=== PATIENT | female | born 1980 | race Caucasian/White ===

== ENCOUNTER 2017-07-11 05:40 | Day surgery (SDC) | payer OTHER ==
[~2017-07-11] VITALS: Ht 162.6 cm; Wt 94.0 kg
[2017-07-11] MEDS ORDERED: LACTATED RINGERS 1,000 ML IV SCH (06:27)
[2017-07-11] MEDS ORDERED: MIDAZOLAM 1 MG/ML, 2ML ONE (06:28)
[2017-07-11] MEDS ORDERED: PNV1TABL11 PO (06:28)
[2017-07-11] MEDS ORDERED: FENTANYL PF 100 MCG/2ML ONE ×3 (06:28→08:07)
[2017-07-11] MEDS ORDERED: PROPOFOL 10 MG/ML, 20ML ONE (06:29)
[2017-07-11] MEDS ORDERED: DOXYCYCLINE 100MG TABLET PO ONE ×2 (06:30→08:00)
[2017-07-11 06:33] VITALS: BP 119/82
[2017-07-11 06:35] LABS: PATH.CAST-FLAG NOT PRESENT; SPERM-FLAG NOT PRESENT; SRC-FLAG NOT PRESENT; XTAL-FLAG NOT PRESENT; YLC-FLAG NOT PRESENT
[2017-07-11] MEDS ORDERED: OXYTOCIN 10 UNITS/ML, 1ML ONE (06:36)
[2017-07-11] MEDS ORDERED: MISOPROSTOL 200 MCG TABLET ONE (06:36)
[2017-07-11] MEDS ORDERED: SILVER NITRATE STICK TP ONE (06:37)
[2017-07-11] MEDS ORDERED: METHYLERGONOVINE 0.2 MG/ML IM ONE (06:37)
[2017-07-11] MEDS ORDERED: KETOROLAC 30 MG/1 ML ONE (06:40)
[2017-07-11] MEDS ORDERED: ONDANSETRON 2MG/ML, 2ML ONE ×3 (06:40→07:42)
[2017-07-11] MEDS ORDERED: DEXAMETHASONE 4 MG/ML, 1ML ONE ×2 (06:40)
[2017-07-11 06:57] LABS: HEMATOCRIT 41.3 % (34.6-47.8); HEMOGLOBIN 13.8 g/dL (11.7-16.4); WHITE BLOOD COUNT 12.3 x10^3/uL (3.4-10)
[2017-07-11] MEDS ORDERED: PROMETHAZINE 25 MG/ML, 1ML IV PRN (07:00)
[2017-07-11] MEDS ORDERED: OXYcodone 5 MG/5 ML ORAL.SOL UDC PO PRN (07:00)
[2017-07-11] MEDS ORDERED: ACETAMINOPHEN 325 MG TABLET PO PRN (07:00)
[2017-07-11] MEDS ORDERED: ONDANSETRON 2MG/ML, 2ML IVPush PRN (07:00)
[2017-07-11] MEDS ORDERED: MEPERIDINE/PF 25MG/0.5ML IVPush PRN (07:00)
[2017-07-11] MEDS ORDERED: HYDROmorphone 1 MG/ML, 1ML IV PRN (07:00)
[2017-07-11] MEDS: FENTANYL PF 100 MCG/2ML IV PRN ×2 (08:08→08:17)
[2017-07-11] MEDS ORDERED: ACETAMINOPHEN 650 MG/20.3 ML UDC ONE (08:18)
[2017-07-11] MEDS ORDERED: OXYcodone 5 MG/5 ML ORAL.SOL UDC ONE (08:18)
== END 2017-07-11 10:50 ==
LOC: OUT 05:40
PROVIDERS: ATTEND Student in an Organized Health Care Education/Training Program
DX: O02.1 Missed abortion (principal); Z3A.08 8 weeks gestation of pregnancy
CPT/HCPCS: 36415; 59820; 81001; 85025; 86900; 87086; 88305; J1100; J1885; J2250; J2405; J2590; J2704; J3010; J7120; J2210

== ENCOUNTER 2018-07-17 11:20 | Outpatient (CLI) | payer SELFPAY ==
[~2018-07-17] VITALS: Ht 162.6 cm; Wt 97.7 kg
[~2018-07-17 11:20] MED LIST: PNV1TABL11 PO
[2018-07-17 11:42] VITALS: BP 110/57
== END 2018-07-17 13:23 | disposition home or self-care (01) ==
LOC: LDOP 11:20
PROVIDERS: ATTEND Student in an Organized Health Care Education/Training Program
DX: O26.892 Other specified pregnancy related conditions, second trimester (principal); Z3A.23 23 weeks gestation of pregnancy; V89.2XXA Person injured in unspecified motor-vehicle accident, traffic, initial encounter
CPT/HCPCS: 59025; 99211; G0463

== ENCOUNTER 2018-10-05 11:45 | Outpatient (CLI) | payer OTHER ==
[~2018-10-05] VITALS: Ht 162.6 cm; Wt 97.7 kg
[2018-10-05 12:02] VITALS: BP 115/72
[2018-10-05 12:37] LABS: MICROSCOPIC INDICATED
[2018-10-05] MEDS ORDERED: TERBUTALINE 1 MG/ML, 1ML SQ ONE (14:00)
[2018-10-05] MEDS ORDERED: TERBUTALINE 1 MG/ML, 1ML ONE (14:00)
== END 2018-10-05 15:05 | disposition home or self-care (01) ==
LOC: LDOP 11:45
PROVIDERS: ATTEND Student in an Organized Health Care Education/Training Program
DX: O62.9 Abnormality of forces of labor, unspecified (principal); Z3A.35 35 weeks gestation of pregnancy
CPT/HCPCS: 59025; 81001; 87086; 89060; 96372; 99211; J3105; G0463; Q0114

== ENCOUNTER 2018-10-13 00:03 | Observation (INO) | payer OTHER ==
[~2018-10-13] VITALS: Ht 162.6 cm; Wt 97.7 kg
[2018-10-13 00:57] LABS: RAPID INFLUENZA A Negative (Negative); RAPID INFLUENZA B Negative (Negative)
[2018-10-13] MEDS ORDERED: ACETAMINOPHEN 325 MG TABLET ONE (00:58)
[2018-10-13] MEDS ORDERED: ACETAMINOPHEN 325 MG TABLET PO PRN (01:00)
[2018-10-13 02:20] LABS: BASOPHILS # (AUTO) 0.04 x10^3/uL (0-0.1); BASOPHILS % (AUTO) 0 % (0-1); EOSINOPHILS % (AUTO) 0 % (1-7); LYMPHOCYTES # (AUTO) 1.06 x10^3/uL (1-3.4); LYMPHOCYTES % (AUTO) 10 % (22-44); MD NO; MEAN CORPUSCULAR HEMOGLOBIN 31.5 pg (27.0-34.8); MEAN CORPUSCULAR HGB CONC 34.2 g/dL (32.4-35.8); MEAN CORPUSCULAR VOLUME 92.3 fL (80-100); MEAN PLATELET VOLUME 9.6 fL (7.4-10.4); MONOCYTES # (AUTO) 0.77 x10^3/uL (0.2-0.8); MONOCYTES % (AUTO) 7 % (2-9); NEUTROPHILS # (AUTO) 8.74 x10^3/uL (1.8-6.8); NEUTROPHILS % (AUTO) 82 % (42-75); PLATELET COUNT 211 x10^3/uL (130-400); RED BLOOD COUNT 3.43 x10^6/uL (3.82-5.3); RED CELL DISTRIBUTION WIDTH 14.5 % (9.6-15.2)
[2018-10-13 02:22] LABS: MICROSCOPIC NOT IND
[2018-10-13 02:26] LABS: CULTURE INDICATED? NO
[2018-10-13 02:33] LABS: ALANINE AMINOTRANSFERASE 12 U/L (12-78); ALBUMIN 2.1 g/dL (3.4-5.0); ANION GAP 8 mmol/L (5-15); CALCIUM 7.8 mg/dL (8.5-10.1); CHLORIDE 107 mmol/L (98-107); CREATININE 0.48 mg/dL (0.55-1.02)
[2018-10-13 02:34] LABS: INTERNATIONAL NORMALIZED RATIO 0.96 (0.93-1.1); PROTHROMBIN TIME 10.1 Seconds (9.6-11.5)
[2018-10-13 02:35] LABS: ALKALINE PHOSPHATASE 137 U/L (45-117); BILIRUBIN,TOTAL 0.5 mg/dL (0.2-1.0); TOTAL PROTEIN 5.9 g/dL (6.4-8.2)
[2018-10-13] MEDS ORDERED: LACTATED RINGERS 1,000 ML IVBOLUS ONE (05:00)
[2018-10-13] MEDS ORDERED: LACTATED RINGERS 1,000 ML IV SCH (05:00)
== END 2018-10-13 04:50 | disposition home or self-care (01) ==
LOC: LDOP 00:03 → LDIP 02:00
PROVIDERS: ADMIT Student in an Organized Health Care Education/Training Program; ATTEND Student in an Organized Health Care Education/Training Program
DX: O26.893 Other specified pregnancy related conditions, third trimester (principal); J02.9 Acute pharyngitis, unspecified; R52 Pain, unspecified; Z3A.36 36 weeks gestation of pregnancy
CPT/HCPCS: 36415; 59025; 80053; 81003; 83605; 85025; 85610; 85730; 87081; 87400; 87880; G0378; J7120; 96360; 96361

== ENCOUNTER 2018-10-16 21:52 | Inpatient (IN) | payer OTHER ==
[~2018-10-16] VITALS: Ht 162.6 cm; Wt 98.8 kg
[2018-10-16] MEDS ORDERED: ACETAMINOPHEN 325 MG TABLET PO ONE (23:00)
[2018-10-16] MEDS ORDERED: SODIUM CHLORIDE 0.9% 1,000 ML IV SCH ×2 (23:00→23:32)
[2018-10-16] MEDS ORDERED: PLEASE ENTER HEIGHT AND WEIGHT MC SCH (23:30)
[2018-10-16] MEDS ORDERED: PLEASE ENTER HEIGHT MC SCH (23:43)
[2018-10-17] MEDS ORDERED: ONDANSETRON ODT 4 MG PO PRN
[2018-10-17] MEDS ORDERED: CEFTRIAXONE PMX 2GM/50ML 50 ML IV SCH
[2018-10-17 00:18] LABS: BASOPHILS # (AUTO) 0.03 x10^3/uL (0-0.1); BASOPHILS % (AUTO) 0 % (0-1); EOSINOPHILS # (AUTO) 0.06 x10^3/uL (0-0.4); EOSINOPHILS % (AUTO) 1 % (1-7); LYMPHOCYTES # (AUTO) 1.19 x10^3/uL (1-3.4); LYMPHOCYTES % (AUTO) 13 % (22-44); MD NO; MEAN CORPUSCULAR HEMOGLOBIN 31.7 pg (27.0-34.8); MEAN CORPUSCULAR HGB CONC 34.3 g/dL (32.4-35.8); MEAN CORPUSCULAR VOLUME 92.4 fL (80-100); MEAN PLATELET VOLUME 8.7 fL (7.4-10.4); MONOCYTES # (AUTO) 0.75 x10^3/uL (0.2-0.8); MONOCYTES % (AUTO) 8 % (2-9); NEUTROPHILS # (AUTO) 7.48 x10^3/uL (1.8-6.8); NEUTROPHILS % (AUTO) 79 % (42-75); PLATELET COUNT 237 x10^3/uL (130-400); RED BLOOD COUNT 3.33 x10^6/uL (3.82-5.3); RED CELL DISTRIBUTION WIDTH 14.7 % (9.6-15.2)
[2018-10-17 00:30] LABS: ANION GAP 7 mmol/L (5-15); CALCIUM 7.6 mg/dL (8.5-10.1); CHLORIDE 110 mmol/L (98-107); CREATININE 0.46 mg/dL (0.55-1.02)
[2018-10-17] MEDS ORDERED: ALBUTEROL SULFATE 2.5 MG/3 ML ONE (00:53)
[2018-10-17] MEDS ORDERED: ALBUTEROL SULFATE 2.5 MG/3 ML NPPB PRN (01:00)
[2018-10-17 02:00] VITALS: BP 116/62
[2018-10-17 05:24] LABS: BASOPHILS # (AUTO) 0.03 x10^3/uL (0-0.1); BASOPHILS % (AUTO) 0 % (0-1); EOSINOPHILS # (AUTO) 0.03 x10^3/uL (0-0.4); EOSINOPHILS % (AUTO) 0 % (1-7); LYMPHOCYTES # (AUTO) 1.45 x10^3/uL (1-3.4); LYMPHOCYTES % (AUTO) 17 % (22-44); MD NO; MEAN CORPUSCULAR HEMOGLOBIN 31.3 pg (27.0-34.8); MEAN CORPUSCULAR HGB CONC 33.7 g/dL (32.4-35.8); MEAN PLATELET VOLUME 8.9 fL (7.4-10.4); MONOCYTES # (AUTO) 0.67 x10^3/uL (0.2-0.8); MONOCYTES % (AUTO) 8 % (2-9); NEUTROPHILS # (AUTO) 6.34 x10^3/uL (1.8-6.8); NEUTROPHILS % (AUTO) 74 % (42-75); PLATELET COUNT 247 x10^3/uL (130-400); RED BLOOD COUNT 3.26 x10^6/uL (3.82-5.3); RED CELL DISTRIBUTION WIDTH 15.1 % (9.6-15.2)
[2018-10-17 05:35] LABS: CALCIUM 7.5 mg/dL (8.5-10.1); CHLORIDE 113 mmol/L (98-107)
[2018-10-17 05:38] LABS: ANION GAP 8 mmol/L (5-15); CREATININE 0.35 mg/dL (0.55-1.02)
[2018-10-17 06:34] VITALS: BP 94/61
[2018-10-17] MEDS ORDERED: AZITHROMYCIN 500 MG TABLET PO SCH (09:00)
[2018-10-17] MEDS: PRENATAL VIT/IRON/FA 1 EACH TABLET PO SCH (12:00)
[2018-10-17] MEDS: GUAIFENESIN 200 MG TABLET PO SCH ×3 (12:17→22:21)
[2018-10-17] MEDS: LACTATED RINGERS 1,000 ML IV SCH ×2 (12:40→22:22)
[2018-10-17] MEDS ORDERED: ACETAMINOPHEN 325 MG TABLET ONE ×2 (15:36→22:09)
[2018-10-17] MEDS: ACETAMINOPHEN 325 MG TABLET PO PRN ×2 (15:39→22:20)
[2018-10-17] MEDS ORDERED: AZITHROMYCIN 500 MG TABLET ONE (22:11)
[2018-10-17 22:14] VITALS: BP 120/70
[2018-10-17] MEDS: AZITHROMYCIN 500 MG TABLET PO SCH (22:21)
[2018-10-17] MEDS: CEFTRIAXONE PMX 2GM/50ML 50 ML IV SCH (22:22)
[2018-10-18] MEDS ORDERED: CALCIUM CARBONATE 500 MG TAB.CHEW ONE (00:39)
[2018-10-18] MEDS ORDERED: CALCIUM CARBONATE 500 MG TAB.CHEW PO PRN (01:00)
[2018-10-18] MEDS ORDERED: ACETAMINOPHEN 325 MG TABLET ONE ×3 (05:45→19:21)
[2018-10-18] MEDS: ACETAMINOPHEN 325 MG TABLET PO PRN ×3 (05:47→19:25)
[2018-10-18] MEDS: GUAIFENESIN 200 MG TABLET PO SCH ×2 (05:47→10:51)
[2018-10-18 05:54] VITALS: BP 112/64
[2018-10-18 07:51] VITALS: BP 122/72
[2018-10-18 08:33] LABS: ALBUMIN 1.8 g/dL (3.4-5.0); ANION GAP 7 mmol/L (5-15); CHLORIDE 111 mmol/L (98-107)
[2018-10-18 08:34] LABS: CREATININE 0.34 mg/dL (0.55-1.02)
[2018-10-18] MEDS ORDERED: PRENATAL VIT/IRON/FA 1 EACH TABLET ONE (08:55)
[2018-10-18] MEDS: PRENATAL VIT/IRON/FA 1 EACH TABLET PO SCH (09:03)
[2018-10-18] MEDS: SODIUM CHLORIDE FLUSH 3ML SYRINGE IVF SCH (10:57)
[2018-10-18] MEDS ORDERED: POTASSIUM CHLORIDE 20 MEQ TAB.ER.PRT PO ONE (11:00)
[2018-10-18] MEDS ORDERED: GUAIFENESIN 200 MG TABLET PO PRN (11:30)
[2018-10-18] MEDS ORDERED: AZITHROMYCIN 500 MG TABLET ONE (20:58)
[2018-10-18] MEDS: AZITHROMYCIN 500 MG TABLET PO SCH (21:01)
[2018-10-18] MEDS: CEFTRIAXONE PMX 2GM/50ML 50 ML IV SCH (21:01)
[2018-10-19] MEDS ORDERED: ACETAMINOPHEN 325 MG TABLET ONE ×2 (00:45→09:48)
[2018-10-19] MEDS: ACETAMINOPHEN 325 MG TABLET PO PRN ×2 (00:47→09:51)
[2018-10-19 07:36] LABS: ALBUMIN 1.8 g/dL (3.4-5.0); ANION GAP 7 mmol/L (5-15); CALCIUM 8.3 mg/dL (8.5-10.1); CHLORIDE 113 mmol/L (98-107)
[2018-10-19 07:37] LABS: CREATININE 0.37 mg/dL (0.55-1.02)
[2018-10-19] MEDS ORDERED: PRENATAL VIT/IRON/FA 1 EACH TABLET ONE (09:49)
[2018-10-19] MEDS: SODIUM CHLORIDE FLUSH 3ML SYRINGE IVF SCH (09:51)
[2018-10-19] MEDS: PRENATAL VIT/IRON/FA 1 EACH TABLET PO SCH (09:51)
[2018-10-19] MEDS ORDERED: AZIT500T5 PO (10:31)
[2018-10-19] MEDS ORDERED: CEFD300C37 PO (10:31)
[2018-10-19] MEDS ORDERED: GUAI200T3 PO (10:31)
== END 2018-10-19 13:11 | disposition home or self-care (01) | DRG 831 ==
LOC: 3NE 22:22 → LDIP 10-17 09:43
PROVIDERS: ADMIT Family Medicine; ATTEND Family Medicine
DX: O99.513 Diseases of the respiratory system complicating pregnancy, third trimester (principal); J18.9 Pneumonia, unspecified organism; O21.2 Late vomiting of pregnancy; O99.283 Endocrine, nutritional and metabolic diseases complicating pregnancy, third trimester; E86.0 Dehydration; Z3A.36 36 weeks gestation of pregnancy
CPT/HCPCS: 36415; J7613; 80048; 82040; 85025; 87040; 94640; G0378; J0696; J7030; J7120

== ENCOUNTER 2018-10-28 20:37 | Inpatient (IN) | payer OTHER ==
[~2018-10-28] VITALS: Ht 162.6 cm; Wt 93.0 kg
[~2018-10-28 20:37] MED LIST changes: +AZIT500T5 PO; +CEFD300C37 PO; +GUAI200T3 PO
[2018-10-28] MEDS ORDERED: LACTATED RINGERS 1,000 ML IV SCH ×2 (20:46→21:12)
[2018-10-28] MEDS ORDERED: D5%-LACTATED RINGERS 1,000 ML IV SCH (20:46)
[2018-10-28] MEDS ORDERED: OXYTOCIN 30U/ 0.9% NaCL 500ML 500 ML IV ONE (20:46)
[2018-10-28] MEDS ORDERED: LIDOCAINE 1%, 20ML ONE (20:54)
[2018-10-28] MEDS ORDERED: OXYTOCIN 30U/ 0.9% NaCL 500ML 500 ML ONE (20:54)
[2018-10-28] MEDS ORDERED: MISOPROSTOL 200 MCG TABLET ONE (20:54)
[2018-10-28] MEDS ORDERED: NEWBORN KIT ONE (20:54)
[2018-10-28] MEDS ORDERED: TERBUTALINE 1 MG/ML, 1ML ONE (20:55)
[2018-10-28] MEDS ORDERED: ONDANSETRON 2MG/ML, 2ML IVPush PRN (21:00)
[2018-10-28] MEDS ORDERED: FENTANYL PF 100 MCG/2ML IV PRN (21:00)
[2018-10-28] MEDS ORDERED: CALCIUM CARBONATE 500 MG TAB.CHEW PO PRN (21:00)
[2018-10-28] MEDS ORDERED: FENTANYL PF 100 MCG/2ML IVPush PRN (21:00)
[2018-10-28] MEDS ORDERED: TERBUTALINE 1 MG/ML, 1ML IVPush PRN (21:00)
[2018-10-28 21:06] LABS: BASOPHILS % (AUTO) 1 % (0-1); EOSINOPHILS # (AUTO) 0.14 x10^3/uL (0-0.4); EOSINOPHILS % (AUTO) 1 % (1-7); LYMPHOCYTES # (AUTO) 2.56 x10^3/uL (1-3.4); LYMPHOCYTES % (AUTO) 20 % (22-44); MD NO; MEAN CORPUSCULAR HEMOGLOBIN 31.3 pg (27.0-34.8); MEAN CORPUSCULAR VOLUME 92.1 fL (80-100); MONOCYTES # (AUTO) 0.88 x10^3/uL (0.2-0.8); MONOCYTES % (AUTO) 7 % (2-9); NEUTROPHILS # (AUTO) 8.91 x10^3/uL (1.8-6.8); NEUTROPHILS % (AUTO) 71 % (42-75); PLATELET COUNT 374 x10^3/uL (130-400); RED BLOOD COUNT 4.13 x10^6/uL (3.82-5.3); RED CELL DISTRIBUTION WIDTH 14.9 % (9.6-15.2)
[2018-10-28] MEDS ORDERED: FENTANYL/BUPIV./NS/PF 250 ML EPIDCONT SCH (21:12)
[2018-10-28] MEDS ORDERED: FENTANYL PF 500 MCG, BUPIVACAINE/PF 0.5%, 30ML 62.5 ML in SODIUM CHLORIDE 0.9% 177.5 ML EPIDCONT SCH (21:30)
[2018-10-28] MEDS ORDERED: LACTATED RINGERS 1,000 ML IVBOLUS PRN (21:30)
[2018-10-28] MEDS ORDERED: OXYTOCIN 30U/ 0.9% NaCL 500ML 500 ML IV PRN (21:42)
[2018-10-28] MEDS ORDERED: BUPIVACAINE 0.25% ONE (22:13)
[2018-10-28] MEDS ORDERED: FENTANYL PF 100 MCG/2ML ONE (22:13)
[2018-10-29] MEDS ORDERED: CALCIUM CARBONATE 500 MG TAB.CHEW ONE ×2 (00:19→02:09)
[2018-10-29] MEDS ORDERED: GUAIFENESIN/DM 200-20MG, 10ML UDC PO PRN (00:30)
[2018-10-29] MEDS ORDERED: NEWBORN KIT ONE (03:41)
[2018-10-29] MEDS ORDERED: IBUPROFEN 600 MG TABLET ONE (04:13)
[2018-10-29] MEDS ORDERED: OXYTOCIN 30U/ 0.9% NaCL 500ML 500 ML ONE (04:13)
[2018-10-29] MEDS: OXYTOCIN 30U/ 0.9% NaCL 500ML 500 ML IV SCH ×2 (04:16→12:44)
[2018-10-29] MEDS ORDERED: IBUPROFEN 800 MG TABLET ONE (04:24)
[2018-10-29] MEDS: IBUPROFEN 800 MG TABLET PO PRN ×3 (04:25→21:00)
[2018-10-29] MEDS: GUAIFENESIN/COD200MG-20MG/10ML LIQUID PO PRN ×3 (04:26→20:53)
[2018-10-29] MEDS ORDERED: CARBOPROST TROMETHAMINE 250 MCG/ML, 1ML IM PRN (04:30)
[2018-10-29] MEDS ORDERED: MISOPROSTOL 200 MCG TABLET PR PRN (04:30)
[2018-10-29] MEDS ORDERED: OXYcodone/APAP 5/325MG TABLET PO PRN (04:30)
[2018-10-29] MEDS ORDERED: RHOGAM FROM BLOOD BANK 1 NOTE EA IM/IV ONE (04:30)
[2018-10-29] MEDS ORDERED: METHYLERGONOVINE 0.2 MG/ML IM PRN (04:30)
[2018-10-29] MEDS ORDERED: OXYcodone/APAP 5/325MG TABLET ONE (04:51)
[2018-10-29] MEDS: OXYcodone/APAP 5/325MG TABLET PO PRN (05:01)
[2018-10-29 05:45] VITALS: BP 121/80
[2018-10-29 08:05] VITALS: BP 115/76
[2018-10-29] MEDS: PRENATAL VIT/IRON/FA 1 EACH TABLET PO SCH (08:19)
[2018-10-29] MEDS: DOCUSATE 100 MG CAPSULE PO PRN ×2 (08:19→20:52)
[2018-10-29 12:15] VITALS: BP 111/62
[2018-10-29 12:30] LABS: BASOPHILS # (AUTO) 0.07 x10^3/uL (0-0.1); BASOPHILS % (AUTO) 0 % (0-1); EOSINOPHILS # (AUTO) 0.08 x10^3/uL (0-0.4); EOSINOPHILS % (AUTO) 1 % (1-7); LYMPHOCYTES # (AUTO) 2.46 x10^3/uL (1-3.4); LYMPHOCYTES % (AUTO) 15 % (22-44); MD SCAN; MEAN CORPUSCULAR HEMOGLOBIN 30.6 pg (27.0-34.8); MEAN CORPUSCULAR HGB CONC 33.1 g/dL (32.4-35.8); MEAN CORPUSCULAR VOLUME 92.5 fL (80-100); MEAN PLATELET VOLUME 9.4 fL (7.4-10.4); MONOCYTES # (AUTO) 1.05 x10^3/uL (0.2-0.8); MONOCYTES % (AUTO) 6 % (2-9); NEUTROPHILS # (AUTO) 12.91 x10^3/uL (1.8-6.8); NEUTROPHILS % (AUTO) 78 % (42-75); PLATELET COUNT 315 x10^3/uL (130-400); RED BLOOD COUNT 3.82 x10^6/uL (3.82-5.3); RED CELL DISTRIBUTION WIDTH 14.5 % (9.6-15.2)
[2018-10-29 17:28] VITALS: BP 118/83
[2018-10-29 19:50] VITALS: BP 119/76
[2018-10-30 01:00] VITALS: BP 116/75
[2018-10-30] MEDS: IBUPROFEN 800 MG TABLET PO PRN (05:22)
[2018-10-30] MEDS: GUAIFENESIN/COD200MG-20MG/10ML LIQUID PO PRN (05:22)
[2018-10-30] MEDS: OXYTOCIN 30U/ 0.9% NaCL 500ML 500 ML IV SCH ×2 (07:30→10:01)
[2018-10-30 07:45] VITALS: BP 117/76
[2018-10-30] MEDS: DOCUSATE 100 MG CAPSULE PO PRN (08:54)
[2018-10-30] MEDS: PRENATAL VIT/IRON/FA 1 EACH TABLET PO SCH (08:54)
[2018-10-30] MEDS: OXYcodone/APAP 5/325MG TABLET PO PRN (08:54)
[2018-10-30] MEDS ORDERED: IBUP-1223 PO (12:44)
== END 2018-10-30 13:47 | disposition home or self-care (01) | DRG 807 ==
LOC: LDOP 20:37 → LDIP 20:49 → 2NW 10-29 05:27
PROVIDERS: ADMIT Student in an Organized Health Care Education/Training Program; ATTEND Student in an Organized Health Care Education/Training Program
PROC: 10E0XZZ Delivery of Products of Conception, External Approach (ICD-10-PCS; principal; 2018-10-29)
PROC: 0HQ9XZZ Repair Perineum Skin, External Approach (ICD-10-PCS; 2018-10-29)
PROC: 3E0R3BZ Introduction of Anesthetic Agent into Spinal Canal, Percutaneous Approach (ICD-10-PCS; 2018-10-29)
PROC: 00HU33Z Insertion of Infusion Device into Spinal Canal, Percutaneous Approach (ICD-10-PCS; 2018-10-29)
DX: O69.81X0 Labor and delivery complicated by cord around neck, without compression, not applicable or unspecified (principal); Z37.0 Single live birth; O70.0 First degree perineal laceration during delivery; Z3A.38 38 weeks gestation of pregnancy; Z87.01 Personal history of pneumonia (recurrent)
CPT/HCPCS: 36415; 85025; 86850; 86900; G0378; J2590; J3010; J7120

== ENCOUNTER → 2018-12-22 | Outpatient (CLI) | payer OTHER ==
[~2018-12-22] MED LIST changes: +FLUO20CA8 PO; +IBUP-1223 PO
== END | disposition home or self-care (01) ==
LOC: STAR 09:20
PROVIDERS: ATTEND Student in an Organized Health Care Education/Training Program
DX: Z01.818 Encounter for other preprocedural examination (principal); Z90.722 Acquired absence of ovaries, bilateral
CPT/HCPCS: 36415; 84702